=== PATIENT | female | born 1980 | race American Indian/Alaskan Native ===

== ENCOUNTER 2021-08-29 06:16 | Emergency (ER) | payer SELFPAY ==
[2021-08-29 06:26] VITALS: BP 116/78
[2021-08-29] MEDS ORDERED: ACETAMINOPHEN 325 MG TAB PO ONE (07:51)
[2021-08-29] MEDS ORDERED: DEXAMETHASONE 4 MG TAB PO ONE (07:51)
--- NOTE | 2021-08-29 07:57 | Emergency Department Report ---
- General Chief Complaint: Upper Respiratory Infection Stated Complaint: PRODUCTIVE COUGH Time Seen by Provider: 08/29/21 07:03 Source: EMS Mode of arrival: Stretcher Limitations: No Limitations - History of Present Illness Initial Comments: 41-year-old female with a past medical history of end-stage renal disease currently on peritoneal dialysis, and hypertension presents to the ER today with complaints of sore throat and cough. Patient states that she started with cold- like symptoms yesterday, including productive cough, and sore throat. She states that it hurts when she swallows and she feels like there is something in her throat. She feels like she is having difficulty breathing because she feels like there is something in her throat she otherwise denies any shortness of breath or chest pain or any lower extremity swelling. She has no trismus or drooling. She denies any fever. She denies any chest pain or any abdominal pain. She denies any ill contacts or recent travel. She states that she has not gotten a COVID-19 vaccine. She states she does not smoke. Complaint: cough, sore throat - Related Data Previous Rx's Medication Instructions Recorded Last Taken Type Benzonatate [Tessalon Perles] 100 mg PO Q8HR PRN #20 capsule 08/29/21 Unknown Rx Cetirizine HCl [Zyrtec 10mg tab] 10 mg PO DAILY #30 tablet 08/29/21 Unknown Rx Allergies Allergy/AdvReac Type Severity Reaction Status Date / Time vancomycin AdvReac Hives Verified 08/29/21 06:26 ED Review of Systems ROS: Stated complaint: PRODUCTIVE COUGH Other details as noted in HPI Comment: All other systems reviewed and negative Constitutional: denies: chills, fever ENT: throat pain. denies: dental pain, hearing loss, epistaxis Respiratory: cough. denies: shortness of breath, SOB with exertion, SOB at rest, wheezing Cardiovascular: denies: chest pain, palpitations Gastrointestinal: denies: abdominal pain, nausea, diarrhea, constipation, hematemesis, hematochezia Genitourinary: denies: urgency, dysuria, frequency, hematuria, discharge, abnormal menses, dyspareunia Musculoskeletal: denies: back pain, joint swelling, arthralgia Skin: denies: rash, lesions, change in color, change in hair/nails, pruritus Neurological: denies: headache, weakness, numbness, paresthesias, confusion, abnormal gait, vertigo Psychiatric: denies: anxiety, depression, auditory hallucinations, visual hallucinations, homicidal thoughts, suicidal thoughts Hematological/Lymphatic: denies: easy bleeding, easy bruising, swollen glands ED Past Medical Hx - Medications Home Medications: Home Medications Medication Instructions Recorded Confirmed Last Taken Type Benzonatate [Tessalon Perles] 100 mg PO Q8HR PRN #20 capsule 08/29/21 Unknown Rx Cetirizine HCl [Zyrtec 10mg tab] 10 mg PO DAILY #30 tablet 08/29/21 Unknown Rx ED Physical Exam - General Limitations: No Limitations General appearance: alert, in no apparent distress - Head Head exam: Present: atraumatic, normocephalic, normal inspection - Eye Eye exam: Present: normal appearance, PERRL, EOMI Pupils: Present: normal accommodation - ENT ENT exam: Present: mucous membranes moist - Expanded ENT Exam Expanded Mouth exam: Present: normal external inspection Throat exam: Positive: tonsillar erythema. Negative: tonsillomegaly, tonsillar exudate, R peritonsillar mass, L peritonsillar mass - Neck Neck exam: Present: normal inspection, full ROM, lymphadenopathy (mild anterior cervical ) - Respiratory Respiratory exam: Present: normal lung sounds bilaterally. Absent: respiratory distress, wheezes, rales, rhonchi - Cardiovascular Cardiovascular Exam: Present: regular rate, normal rhythm, normal heart sounds - GI/Abdominal GI/Abdominal exam: Present: soft. Absent: distended, tenderness, guarding, rebound - Extremities Exam Extremities exam: Present: normal inspection, full ROM. Absent: pedal edema, calf tenderness - Neurological Exam Neurological exam: Present: alert, oriented X3, CN II-XII intact, normal gait - Psychiatric Psychiatric exam: Present: normal affect, normal mood - Skin Skin exam: Present: intact ED Course Vital Signs 08/29/21 06:25 Temperature 99.2 F Pulse Rate 106 H Respiratory 21 Rate Blood Pressure 116/78 [Right] O2 Sat by Pulse 99 Oximetry ED Medical Decision Making - Radiology Data Radiology results: report reviewed Patient: CASEY GUERRA MR#: [id number] : 1980 Acct:[id number] Age/Sex: 41 / F ADM Date: 08/29/21 Loc: ED Attending Dr: Ordering Physician: COLE HEBERT Date of Service: 08/29/21 Procedure(s): XR chest routine 2V Accession Number(s): [id number] cc: COLE HEBERT Fluoro Time In Minutes: CHEST 2 VIEWS INDICATION / CLINICAL INFORMATION: Cough. COMPARISON: None available. FINDINGS: SUPPORT DEVICES: None. HEART / MEDIASTINUM: No significant abnormality. LUNGS / PLEURA: No significant pulmonary or pleural abnormality. No pneumothorax. ADDITIONAL FINDINGS: No significant additional findings. IMPRESSION: 1. No acute findings. Signer Name: Maykel Thomas MD Signed: 08/29/2021 9:01 AM Workstation Name: [id number] Transcribed By: TYRONE - Medical Decision Making 1000: Rapid strep is negative. Chest x-ray shows nothing acute. Patient noted sitting comfortably in the recliner. She is tolerating her secretions well. She has no trismus or drooling. Airway appears to be intact and no swelling noted to posterior pharynx. She has no stridor. She is not in any respiratory distress. No significant adventitious sounds noted on lung exam requiring any nebulizer treatment. Patient is afebrile. She does not appear septic. she is not toxic appearing. She does not appear ill. She is neurologically intact with a normal gait. She has no abdominal pain. She has no meningeal signs on exam. This time I suspect the patient symptoms is related to a viral illness. Discussed all results with patient. Recommend the patient that she gets an outpatient COVID-19 test as this could be the cause of her symptoms. In the meantime her treatment will be geared towards her symptoms. Recommend lots of fluids. Recommend she follows up with her PCP but she understands to return to the ER if her symptoms worsens in any way. Critical care attestation.: If time is entered above; I have spent that time in minutes in the direct care of this critically ill patient, excluding procedure time. ED Disposition Clinical Impression: Viral URI with cough, Viral pharyngitis Disposition: HOME / SELF CARE / HOMELESS Is pt being admited?: No Does the pt Need Aspirin: No Condition: Stable Instructions: Pharyngitis, Viral Respiratory Infection, Cenz-Eh-[id number] Additional Instructions: Recommend a take the Tessalon Perles and Zyrtec as prescribed. Recommend using throat lozenges or [id number] throat sprays to help with your sore throat. You can take Tylenol and ibuprofen for any pain or fever. I do recommend that you get a Covid test once you leave here today as this could also be a cause of your symptoms. Recommend lots of fluids. Follow-up closely with your PCP. Return to the ER if your symptoms worsens in any way. Prescriptions: Benzonatate [Tessalon Perles] 100 mg PO Q8HR PRN #20 capsule PRN Reason: Cough Cetirizine HCl [Zyrtec 10mg tab] 10 mg PO DAILY #30 tablet Referrals: PRIMARY CARE, [Primary Care Provider] - 3-5 Days Time of Disposition: 09:32
--- NOTE | 2021-08-29 09:05 | XRay Report ---
CHEST 2 VIEWS INDICATION / CLINICAL INFORMATION: Cough. COMPARISON: None available. FINDINGS: SUPPORT DEVICES: None. HEART / MEDIASTINUM: No significant abnormality. LUNGS / PLEURA: No significant pulmonary or pleural abnormality. No pneumothorax. ADDITIONAL FINDINGS: No significant additional findings. IMPRESSION: 1. No acute findings. Signer Name: Maykel Thomas MD Signed: 08/29/2021 9:01 AM Workstation Name: [id number]
== END 2021-08-29 10:28 | disposition home or self-care (01) ==
LOC: EDBD → ED 06:16
DX: J06.9 Acute upper respiratory infection, unspecified (principal); B97.89 Other viral agents as the cause of diseases classified elsewhere; Z88.1 Allergy status to other antibiotic agents; Z79.899 Other long term (current) drug therapy
CPT/HCPCS: 71046; 87116; 87430; 99284; J8540